=== PATIENT | male | born 1985 | race Caucasian/White ===

== ENCOUNTER 2020-10-13 13:53 | Outpatient (REF) | payer OTHER, SELFPAY ==
[2020-10-14 19:10] LABS: COVID-19 RT-PCR UVMMC Result Negative (Negative)
== END 2020-10-13 14:13 ==
LOC: NCHCN 13:53
PROVIDERS: PCP Internal Medicine; Visit Provider Family Medicine
DX: Z20.822 Contact with and (suspected) exposure to COVID-19 (principal)
CPT/HCPCS: U0003

== ENCOUNTER 2021-02-02 12:57 | Outpatient (REF) | payer OTHER, SELFPAY ==
[2021-02-03 11:28] LABS: COVID-19 RT-PCR UVMMC Result Negative (Negative)
== END 2021-02-02 12:58 | disposition home or self-care (01) ==
LOC: NCHCN 12:57
PROVIDERS: PCP Internal Medicine
DX: Z20.822 Contact with and (suspected) exposure to COVID-19 (principal)
CPT/HCPCS: U0003

== ENCOUNTER 2021-06-10 17:38 | Outpatient (REF) | payer SELFPAY ==
[2021-06-11 16:38] LABS: COVID-19 RT-PCR UVMMC Result Negative (Negative)
== END 2021-06-10 17:39 | disposition home or self-care (01) ==
LOC: NCHCN 17:38
PROVIDERS: PCP Internal Medicine; Referring Provider Family Medicine; Visit Provider Family Medicine
DX: Z20.822 Contact with and (suspected) exposure to COVID-19 (principal)
CPT/HCPCS: U0003

== ENCOUNTER 2022-03-17 23:05 | Emergency (ER) | payer SELFPAY ==
--- OUTSIDE RECORDS SUMMARY | 2022-03-17 23:17 | XMS_ITS | Encounter Summary ---
:1985 [place] [address] Care Team Providers Name Role Phone Mary Graham MD Primary Care Provider Reason for Referral Diagnostic Test (Routine) - Closed Specialty Diagnoses / Procedures Referred By Contact Refer red To Contact Sleep Center Diagnoses JOANNA (obstructive sleep apnea) Joanne Orlando APRN [facility] Sleep Medicine Procedures Sleep Study with PAP Titration [facility] [address] [place] [address] [place] [address] Referral ID Status Reason Start Date Expiration Date Visits V isits Requested Authorized [id number] Closed Specialty 06/02/2020 06/02/2021 1 1 Service Requested Encounter Details Date Type Department Care Team Description 05/14/2020 Orders Only Sleep Center at Joanne Orlando APRN [facility] sleep apnea) [address] [place], [place] SLE[place]ORD[place] [address] CENTER [phone] [place], [place] [address] (Wo rk) Social History Tobacco Use Types Packs/Day Years Used Date Never Assessed Sex Assigned at Date Recorded Not on file documented as of this encounter Progress Notes Joanne Orlando APRN - 05/14/2020 10:16 AM EDT CPAP titration with TCO2 and O2 protocol sleep study ordered today. JOANNE ORLANDO APRN documented in this encounter Plan of Treatment Scheduled Orders Name Type Priority Associated Diagnoses Order S chedule Sleep Study with PAP Sleep Center Routine JOANNA (obstructive sle ep Expected: Titration apnea) 05/14/2020, Exp ires: 05/13/2021 documented as of this encounter Visit Diagnoses Diagnosis JOANNA (obstructive sleep apnea) Obstructive sleep apnea (adult) (pediatr ic) documented in this encounter Care Teams Rotary Lithographic Press Operator Relationship Specialty Start Date End Date Mary Graham MD PCP - General Family Medicine 03/13/20 [address] [place] [address] documented as of this encounter
--- OUTSIDE RECORDS SUMMARY | 2022-03-17 23:17 | XMS_ITS | Encounter Summary ---
:1985 [place] [address] Care Team Providers Name Role Phone Mary Graham MD Primary Care Provider Encounter Details Date Type Department Care Team Description 06/26/2020 Orders Only Sleep Center at Joanne Orlando APRN JOANNA ([facility] sleep apnea) [address] [place] [address] CENTER [phone] [place], [place] [address] (Wo rk) Social History Tobacco Use Types Packs/Day Years Used Date Never Assessed Sex Assigned at Date Recorded Not on file documented as of this encounter Progress Notes Joanne Orlando APRN - 06/26/2020 12:15 PM EDT Order placed to [facility] for machine, mask, and all PAP supplies. Routing to staff to contact pt re scheduling CPAP compliance visit with me in > 8 weeks from today. JOANNE ORLANDO APRN documented in this encounter Plan of Treatment Not on filedocumented as of this encounter Visit Diagnoses Diagnosis JOANNA (obstructive sleep apnea) Obstructive sleep apnea (adult) (pediatr ic) documented in this encounter Care Teams Fundraising Officer Relationship Specialty Start Date End Date Mary Graham MD PCP - General Family Medicine 03/13/20 [address] [place], [place] [id number] documented as of this encounter
--- OUTSIDE RECORDS SUMMARY | 2022-03-17 23:17 | XMS_ITS | Encounter Summary ---
:1985 Author Organization [place] [address] Care Team Providers Name Role Phone Mary Graham MD Primary Care Provider Reason for Visit Diagnostic Test (Routine) - Closed Specialty Diagnoses / Procedures Referred By Contact Refer red To Contact Sleep Center Diagnoses JOANNA (obstructive sleep apnea) Joanne Orlando APRN [facility] Sleep Medicine Procedures Sleep Study with PAP Titration [facility] [address] [place] [address] [place] [address] Referral ID Status Reason Start Date Expiration Date Visits V isits Requested Authorized [id number] Closed Specialty 06/02/2020 06/02/2021 1 1 Service Requested Encounter Details Date Type Department Care Team Description 06/12/2020 [facility] sleep apnea) [place] [address] SLEEP DISORDERS [phone] [place], [place] [address] Social History Tobacco Use Types Packs/Day Years Used Date Never Assessed Sex Assigned at Date Recorded Not on file documented as of this encounter Last Filed Vital Signs Vital Sign Reading Time Taken Comments Blood Pressure 147/92 06/12/2020 11:52 PM AUTOM[employer] CU FF EDT Pulse 96 06/12/2020 11:52 PM EDT Temperature 36.6 ??C (97.9 ??F) 06/12/2020 7:24 PM EDT Respiratory Rate - - Oxygen Saturation 97% 06/12/2020 11:52 PM EDT Inhaled Oxygen Concentration - - Weight 153.2 kg (337 lb 12.8 06/12/2020 11:52 PM oz) EDT Height 193 cm (6' 4) 06/12/2020 11:52 PM EDT Body Mass Index 41.12 06/12/2020 11:52 PM EDT documented in this encounter Progress Notes Rafael Begum MD - 06/12/2020 7:30 PM EDT Images from the original note were not included. REPORT OF POSITIVE PRESSURE TITRATION IDENTIFYING INFORMATION Elieser Gardner : 1985 REFERRING PHYSICIAN:CIRILO Aponte PRIMARY CARE PHYSICIAN: Mary Graham MD History Of Present Illness: Elieser Gardner is a 34 y.o. male who presents for a polysomnogram. Polysomnography: The patient's sleep was evaluated for one night at the [facility]. Sleep was monitored in accordance with recommended AASM guidelines. The recording also included oral/nasal airflow, chest and abdominal respiratory effort, nasal pressure, single channel EKG, intercostal EMG, bilateral tibialis EMG, and oxygen saturation (by pulse oximeter). Type of Positive Pressure Utilized: CPAP Comment: - Sleep/EEG: The patient had a 9.5 Hz posterior dominant rhythm when awake with eyes closed. NREM and REM sleep were noted. REM percentage was 35% which is elevated and suggestive of a REM rebound. REMlatency, however, was not reduced. - Respiratory: CPAP was titrated from a pressure of 6 cm to 19 cm. The patient reported some difficulty exhaling against CPAP which was relieved by adding Cflex. Obstructions was noted side NREM at 6 and 8 cm in light sleep. Audible snoring was noted side N3 at 10 and 11 cm. Supine hypopneas were noted at 12,13 and 14 cm in NREM sleep. Audible snoring was noted supine N3 at 15 and 16 cm. Pressures of 16 and 18 cm were demonstrated generally effective in N2 and REM supine.Some central apneas were noted in REM and in light sleep at these pressures. The central apnea indexoverall for the night as a whole was only 4. A pressure of 19 cm pressure was also demonstrated efficacious in REM sleep supine. Interfaces: Dreamwear FFM large frame with medium mask used for the entire study. At 16 cm leak values were 45-63 lpm. At 18 cm leak values were 52-69 lpm. There was no evidence for sustained hypoxemia overnight. For the study as a whole the mean saturation was 97% with a minimum of 91%. - EKG: Normal sinus rhythm with no significant ectopy. - EMG: PLMI was zero. - Study Conditions: Head of the bed: flat with one pillow Supplemental oxygen: room air - Subjective: The post sleep study questionnaire indicated the following: ...how did you sleep last night: slighlty worse ..how well rested and alert do you feel right now: slightly worse Mask Demonstration: Patient expressed a preference for Dreamwear FFM over the Simplus medium FFM. Assessment: Mr. Elieser Gardner is a 34 y.o. male whose polysomnogram reveals a mostly effective CPAP pressure of 16 cm of water in NREM and REM supine. There was no sustained hypoxemia noted withCPAP overnight. A possible REM rebound was noted overnight suggesting possible prior REM sleep deprivation secondary to sleep apnea. Results and recommendations relayed via my . Recommendations: 1) CPAP set at a pressure of 16 cm with a Dreamwear full face mask size large frame and medium mask.To be ordered by PATO Orlando. 2) Blood pressure monitoring and then follow up with Mary Graham MD given the elevated blood pressure reading of 147/92 prior to the sleep study. 3) Follow up with PATO Orlando approximately 6 weeks after starting CPAP to be arranged by PATO Orlando. [facility] REPORT of TITRATION Polysomnography Patient Name: Elieser aGrdner Study Date: 06/12/2020 Age & Sex: 34 y.o. Male Height: 6'4 Date of : 1985 Weight: 337.8 lbs BMI: 41.1 Referring Provider: Recording Technologist: MARK COE Scoring Technologist: SHERRY EDWARDS RRT, RPSGT Sleep Fellow: Sleep Specialist: Scoring Technologist Comments: ECG: Sinus Rhythm Ectopy: Epoch 632 Description of Study: Diagnostic polysomnography was performed utilizing frontal, central & occipital EEG, EOG, submentalis EMG, oronasal thermocouple, nasal pressure, ECG, thoracic and abdominal inductance plethysmography, right and left anterior tibialis EMG, snore sensor, and pulse oximetry according to AASM established guidelines. Study Details & Sleep Architecture Diagnostic Start Time (Lights Off): 20:51:54 Total Recording Time: 539.5 min Diagnostic End Time (Lights On): 05:51:24 Total Sleep Time (minutes): 465.5 Total Num. of Stage Shifts: 164 Total Sleep Time (hrs:min): 7:45.5 Total Num. of Awakenings: 22 Sleep Onset Latency: 13.0 min Total Num. of Trans. to N1: 45 Sleep Efficiency: 86.3% Total Num. of REM Periods: 6 Stage Results: Time (minutes) %TST Latency (minutes) WASO: 61.0 - - N1: 43.0 9.2 0.0 N2: 159.0 34.2 5.5 N3: 99.0 21.3 18.0 REM: 164.5 35.3 113.5 109.5 (minus wake) Arousal Counts: NREM REM Total Spontaneous: 31 (6.2/hr) 17 (6.2/hr) 48 (6.2/hr) Sum of All Arousals: 96 (19.1/hr) 19 (6.9/hr) 115 (14.8/hr) Spontaneous arousals include only EEG arousals not associated with a respiratory event or PLM. Body Position: Supine Non-Supine Non-REM: 157.0 min 144.0 min REM: 144.5 min 20.0 min Total Sleep: 301.5 min (64.8%) 164.0 min (35.2%) Respiratory Events Apneas Obstructive Mixed Central Total Apneas Total Count: 24 3 34 61 Mean Duration (sec): 12 22 13 14 Longest Duration (sec): 18.9 28.5 28.1 29 Index (REM/NREM): 0.0 / 4.8 0.0 / 0.6 1.5 / 6.0 1.5/ 11.4 Index (Sup./Non-Sup.): 0.4 / 8.0 0.4 / 0.4 3.4 / 6.2 4.2/ 14.6 Index (Total): 3.1 0.4 4.4 7.9 Hypopneas & RERAs Hypopnea* [facility] Hypopnea AASM Central Hypopneas Hypopneas All RERA Total Count: 7 54 0 54 0 Mean Duration (sec): 26.8 27.5 - 28 0 Longest Duration (sec): 56.3 61.2 0.0 61 0 Index (REM/NREM): 0.4/1.2 2.9/9.0 0.0/0.0 3.3/ 9.0 0.0 0.0 Index (Sup./Non-Sup.): 0.8 / 1.1 5.2/ 9.9 0/0 5.2/ 10.2 0.0 / 0.0 Index (Total): 0.9 6.8 0.0 7.0 0.0 *[facility]-defined hypopneas include only hypopneas with a >=4% oxygen desaturation. Includes hypopneas with an arousal or with a 3%-4% desaturation. Periodic Breathing Total Sleep Time Time (minutes) 0.0 Time (%Sleep Time) 0.0 AHI: Includes all apneas & all hypopneas associated with an arousal or a ? 3% desaturation. Supine Non-Sup. REM NREM Total Count: 47 68 13 102 115 Index (events/hr): 9.4 24.9 4.7 20.3 AHI = 14.8 CMS AHI: Includes all apneas & only hypopneas associated with a ? 4% desaturation. Supine Non-Sup. REM NREM Total Count: 25 43 5 63 68 Index (events/hr): 5.0 15.7 1.8 12.6 CMS = 8.8 Obstructive AHI: Includes obstructive & mixed apneas as well as all hypopneas. Excludes central apneas and RERAs. Supine Non-Sup. REM NREM Total Count: 30 51 9 72 81 Index (events/hr): 6.0 18.7 3.2 14.3 OAHI = 10.4 RDI: Includes all apneas, all hypopneas, all RERAs, and all ???Unsure??? events. Supine Non-Sup. REM NREM Total Count: 47 68 12.9 101.8 115 Index (events/hr): 9.4 24.9 4.7 20.3 RDI = 14.8 Oxygen Saturation Details (Overall) SpO2 Awake NREM REM All Sleep TIERA Report Sleep Mean: 98% 97% 98% 97% 3% TIERA 6.4 7.0 Minimum: - 91% 95% 91% 4% TIERA 1.3 1.5 SpO2 Awake (minutes) NREM (minutes) REM (minutes) All Sleep (minutes) ?90% 0.0 0.0 0.0 0.0 ?89% 0.0 0.0 0.0 0.0 ?88% 0.0 0.0 0.0 0.0 90-99% 48.1 284.1 135.0 419.1 80-89.9% 0.0 0.0 0.0 0.0 79-79.9% 0.0 0.0 0.0 0.0 60-69.9% 0.0 0.0 0.0 0.0 50-59.9% 0.0 0.0 0.0 0.0 ?50% 0.0 0.0 0.0 0.0 Cardiac Details Heart Rate (bpm) Total Study NREM REM All Sleep Minimum - 54 51 51 Maximum 107 89 95 95 Mean - 76 76 76 Limb Movement Details Periodic Limb Movements Total PLMs (and Index) PLMs w/ Arousals (and Index) Wake (after ???Lights Off???): 0 (0.0/hr) 0 (0.0/hr) NREM: 0 (0.0/hr) 0 (0.0/hr) REM: 0 (0.0/hr) 0 (0.0/hr) Total Sleep: 0 (0.0/hr) 0 (0.0/hr) Pressure Analysis Time (hh:mm:ss) IP/EP/O2 TST Supine Non-Sup. REM Non-REM REM Sup. 6/6/0 8/8/0 10/10/0 11/11/0 12/12/0 13/13/0 14/14/0 15/15/0 16/16/0 18/18/0 19/19/0 0:05:1.0 0:05:29.0 0:14:7.0 0:24:11.0 0:16:46.0 0:06:37.0 0:09:0.0 0:20:19.0 1:54:25.0 3:03:47.0 1:05:48.0 0:00:0.0 0:00:0.0 0:00:0.0 0:00:0.0 0:04:34.0 0:06:37.0 0:09:0.0 0:20:19.0 1:54:25.0 1:23:5.0 1:03:30.0 0:05:1.0 0:05:29.0 0:14:7.0 0:24:11.0 0:12:12.0 0:00:0.0 0:00:0.0 0:00:0.0 0:00:0.0 1:40:42.0 0:02:18.0 0:00:0.0 0:00:0.0 0:00:0.0 0:00:0.0 0:00:0.0 0:00:0.0 0:00:0.0 0:00:0.0 0:50:30.0 0:58:0.0 0:56:0.0 0:05:1.0 0:05:29.0 0:14:7.0 0:24:11.0 0:16:46.0 0:06:37.0 0:09:0.0 0:20:19.0 1:03:55.0 2:05:47.0 0:09:48.0 0:00:0.0 0:00:0.0 0:00:0.0 0:00:0.0 0:00:0.0 0:00:0.0 0:00:0.0 0:00:0.0 0:50:30.0 0:38:0.0 0:56:0.0 Respiratory Event Counts IP/EP/O2 Obstr. Ap. Mixed Ap. Central Ap. Hypopneas* RERAs 6/6/0 8/8/0 10/10/0 11/11/0 12/12/0 13/13/0 14/14/0 15/15/0 16/16/0 18/18/0 19/19/0 9 13 0 0 0 0 0 0 0 0 2 1 0 0 0 0 0 0 0 2 0 0 1 0 0 0 0 0 0 0 10 22 1 3 0 4 0 6 6 4 0 5 23 3 0 0 0 0 0 0 0 0 0 0 0 *Includes all types of hypopneas: those associated with arousals or ?3% desaturations. Respiratory Indices (events per hour) IP/EP/O2 OAI MEAGHAN NOAH HI* RDI 6/6/0 8/8/0 07/04/0 0 09/05/0 /0 14/0 1515/0 1616/0 18/18/0 1919/0 107.6 142.2 0.0 0.0 0.0 0.0 0.0 0.0 0.0 0.0 1.8 12.0 0.0 0.0 0.0 0.0 0.0 0.0 0.0 1.0 0.0 0.0 12.0 0.0 0.0 0.0 0.0 0.0 0.0 0.0 5.2 7.2 0.9 35.9 0.0 17.0 0.0 21.5 54.4 26.7 0.0 2.6 7.5 2.7 167.4 142.2 17.0 0.0 21.5 54.4 26.7 0.0 8.9 14.7 5.5 *Includes all types of hypopneas: those associated with arousals or ?3% desaturations. Respiratory Indices (events per hour) IP/EP/O2 AHI Supine Non-Sup. REM Non-REM 66/0 88/0 07/04/0 08/05/0 09/05/0 1313/0 1414/0 1515/0 1616/0 18/18/0 19/19/0 167.4 142.2 17.0 0.0 21.5 54.4 26.7 0.0 8.9 14.7 5.5 0.0 0.0 0.0 0.0 78.8 54.4 26.7 0.0 8.9 5.8 5.7 167.3 142.3 17.0 0.0 0.0 0 0 0 0 22.0 0.0 0.0 0.0 0.0 0.0 0.0 0.0 0.0 0.0 5.9 7.2 1.1 167.4 142.2 17.0 0.0 21.5 54.4 26.7 0.0 11.3 18.1 30.6 *Includes all types of hypopneas: those associated with arousals or ?3% desaturations. Oxygen Saturations IP/EP/O2 Minimum Mean 6/6/0 8/8/0 10/10/0 11/11/0 12/12/0 13/13/0 14/14/0 15/15/0 16/16/0 18/18/0 19/19/0 94 94 93 94 96 94 91 94 93 92 94 97 97 96 96 97 97 97 97 98 98 98 Graphs CPAP/Bi-Level PLMs Body Position documented in this encounter Plan of Treatment Not on filedocumented as of this encounter Visit Diagnoses Diagnosis JOANNA (obstructive sleep apnea) Obstructive sleep apnea (adult) (pediatr ic) documented in this encounter Care Teams Mechanical Maintenance Relationship Specialty Start Date End Date Mary Graham MD PCP - General Family Medicine 03/13/20 [address] [place] [address] documented as of this encounter
--- OUTSIDE RECORDS SUMMARY | 2022-03-17 23:17 | XMS_ITS | Encounter Summary ---
:1985 Demographics Home Phone Preferred Language Unknown Marital Status Unknown Sikhism Affiliation Unknown Race Unknown Ethnic Group Unknown Author Organization [facility] Address [address] [place] [address] Care Team Providers Name Role Phone Unavailable Primary Care Provider Unavailable Encounter Details Date Type Department Care Team Description 10/13/2020 Lab Requisition [facility] Outr Resulting Lab, Pathology & Laboratory Provider [facility] [address] [place] [address] Social History Tobacco Use Types Packs/Day Years Used Date Never Assessed Sex Assigned at Date Recorded Not on file documented as of this encounter Plan of Treatment Not on filedocumented as of this encounter Procedures Procedure Name Priority Date/Time Associated Diagnosis Comme nts COVID-19 TEST [facility] Today 10/13/2020 10:20 LAB PCR EST COVID-19 TESTING Routine 10/13/2020 10:20 Results for this EST procedure are i n the results section. documented in this encounter Results COVID-19 TEST [facility] LAB PCR (10/13/2020 10:20 EST) Specimen Swab - Entire nasopharynx (body structur e) Performing Organization Address City/State/ZIP Code Phon e Number [facility] [address] [place] [address] SERVICES COVID-19 TESTING (10/13/2020 10:20 EST) COVID-19 rt-PCR Negative Negative [facility] Result Comment: [facility] Negative results do not prec lude 2019-nCoV infection and should not be used as the sole basis for treatment or other patient management decisions. Negative results must be combined with clinical observa SERVICES tions, patient history, and epidemiological informatio n. This test was developed and its performance characteristics determined by [facility]. It has not been cleared or approved by the US Food and Drug Administration. FDA does not require this test to go through premarket FDA review. This t est is used for clinical purposes. It should not be regarded as investigational or for research. This laboratory is certified under the Clinical Laboratory Improvement Amendm ents (CLIA) as qualified to perform high complexity clinical laboratory testing. This test is based on the CD C COVID-19 Emergency Use Authorization (EUA) assay, with minor modification as defined by the FDA Performed on the [employer] 7 Flex RT-PCR System. Performing Lab [facility] Lab [facility] SERVICES Specimen Swab Performing Organization Address City/State/ZIP Code Phon e Number [facility] [address] [place] [address] SERVICES documented in this encounter Visit Diagnoses Not on filedocumented in this encounter
--- OUTSIDE RECORDS SUMMARY | 2022-03-17 23:17 | XMS_ITS | Encounter Summary ---
:1985 Author Organization [facility] [place] [address] Care Team Providers Name Role Phone Mary Graham MD Primary Care Provider Encounter Details Date Type Department Care Team Description 04/09/2020 Telephone Sleep Center at [facility] Joanne Orlando, TOWEL ROLLING MACHINE OPERATOR [address] [facility] [place] [address] SLEEP DISORD[facility]ENTER [phone] [place] [id number] (Wo rk) Social History Tobacco Use Types Packs/Day Years Used Date Never Assessed Sex Assigned at Date Recorded Not on file documented as of this encounter Plan of Treatment Not on filedocumented as of this encounter Visit Diagnoses Not on filedocumented in this encounter Care Teams Associate Professor Of Kinesiology Relationship Specialty Start Date End Date Mary Graham MD PCP - General Family Medicine 03/13/20 [address] [place], [place] [address] documented as of this encounter
--- OUTSIDE RECORDS SUMMARY | 2022-03-17 23:17 | XMS_ITS | Encounter Summary ---
:1985 Demographics Home Phone Preferred Language Unknown Marital Status Unknown Advent Affiliation Unknown Race Unknown Ethnic Group Unknown Author Organization [facility] Address [address] [place] [address] Care Team Providers Name Role Phone Unavailable Primary Care Provider Unavailable Encounter Details Date Type Department Care Team Description 06/10/2021 Lab Requisition [facility] Outr Resulting Lab, Pathology & Laboratory Provider [facility] [address] [place] [address] Social History Tobacco Use Types Packs/Day Years Used Date Never Assessed Sex Assigned at Date Recorded Not on file documented as of this encounter Plan of Treatment Not on filedocumented as of this encounter Procedures Procedure Name Priority Date/Time Associated Diagnosis Comme nts COVID-19 TEST [facility] Today 06/10/2021 11:15 LAB PCR EDT COVID-19 TESTING Routine 06/10/2021 11:15 Results for this EDT procedure are i n the results section. documented in this encounter Results COVID-19 TEST [facility] LAB PCR (06/10/2021 11:15 EDT) Specimen Swab - Entire nasopharynx (body structur e) Performing Organization Address City/State/ZIP Code Phon e Number [facility] [address] [place] [address] SERVICES COVID-19 TESTING (06/10/2021 11:15 EDT) COVID-19 rt-PCR Negative Negative [facility] Result Comment: [facility] This test has not been FDA c leared or approved. This test has been authorized by FDA under an EUA for use by authorized laboratories. This test has been authorized only for detection of nucleic acid fro SERVICES m 2019-nCoV, not for any oth er viruses or pathogens. This test is only authorized for the duration of the declaration that circumstances exist justifying the authorization of emergency use of in vitro d iagnostic tests for detectio n and/or diagnosis of 2019-nCoV under section 564(b)(1) of Act, 21 U.S.C ?? 360bbb-3(b) (1), unless the authorization is terminated or revoked sooner. Negative results do not prec lude 2019-nCoV infection and should not be used as the sole basis for treatment or other patient management decisions. Negative results must be combined with clinical observa tions, patient history, and epidemiological informatio n. Testing was performed using the chel SARS-CoV-2 assay ([employer] on the Chel 6800 System Performing Lab [address] [facility] Lab [facility] SERVICES Specimen Swab Performing Organization Address City/State/ZIP Code Phon e Number [facility] [address] [place] [address] SERVICES documented in this encounter Visit Diagnoses Not on filedocumented in this encounter
--- OUTSIDE RECORDS SUMMARY | 2022-03-17 23:17 | XMS_ITS | Encounter Summary ---
:1985 Author Organization [place] [address] Care Team Providers Name Role Phone Mary Graham MD Primary Care Provider Reason for Referral Consultation (Routine) - Closed Specialty Diagnoses / Procedures Referred By Contact Refer red To Contact Sleep Center Diagnoses Observed sleep apnea Loud snoring Excessive daytime sleepiness Non-restorative sleep Joanne Orlando APRN [facility] Procedures PRG SLEEP STD AIRFLOW HRT RATE AND SAT EFFORT UNATT [facility] [address] [place] [address] [place] [address] Referral ID Status Reason Start Date Expiration Date Visits V isits Requested Authorized [id number] Closed Test Only 04/09/2020 04/09/2021 1 1 Reason for Visit Consultation (Urgent) - Specialty Diagnoses / Procedures Referred By Contact Refer red To Contact Sleep Center Diagnoses Obstructive sleep apnea (adult) (pediatric) Michael Miller PA [facility] [address] [place] [address] [place] [address] Fax: Referral ID Status Reason Start Date Expiration Date Visits V isits Requested Authorized [id number] Consult, Test 02/25/2020 02/24/2021 6 6 [facility] PCP Updated and/or Approved Encounter Details Date Type Department Care Team Description 04/09/2020 Office Visit Sleep Center at Joanne Orlando, Excessive daytime sleepiness (Primary Dx); [address] [facility] Observed sleep apnea; [address] [facility] Loud snoring; [place], [place] Non-restorative sleep [phone] SLEEP DISORDERS [phone] [place], [place] [address] (Wo rk) Social History Tobacco Use Types Packs/Day Years Used Date Never Assessed Sex Assigned at Date Recorded Not on file documented as of this encounter Last Filed Vital Signs Vital Sign Reading Time Taken Comments Blood Pressure 134/92 04/09/2020 10:10 AM EDT Pulse 97 04/09/2020 10:10 AM EDT Temperature - - Respiratory Rate - - Oxygen Saturation 98% 04/09/2020 10:10 AM EDT Inhaled Oxygen Concentration - - Weight 149.2 kg (329 lb) 04/09/2020 10:10 AM EDT Height 193 cm (6' 4) 04/09/2020 10:10 AM EDT Body Mass Index 40.05 04/09/2020 10:10 AM EDT documented in this encounter Patient Instructions Patient InstructionsJoanne Orlando APRN - 04/09/2020 10:00 AM EDT Recommendations: --Home sleep apnea test, will call clinic to schedule --Printed handout given to patient on Sleep Apnea Facts & Figures, What to Expect for Sleep Study --Role of weight loss reviewed --Safe driving precautions reviewed with the patient documented in this encounter Progress Notes Joanne Orlando APRN - 04/09/2020 10:00 AM EDT Sleep Medicine Consultation Note CC/HPI: Elieser Gardner is a 34 y.o. male seen at the request of CIRILO Aponte, for advice regarding JOANNA. Has daytime somnolence. Doesn't have the energy to exercise. He tried another persons CPAP machine but couldn't tolerate pressures, but tried it in the past for about 10 mins for 2 nights. He couldn't exhale so HPI continues below. Sleep Pattern: Bed/Recliner/Wedge: bed, flat, with and dog at foot of bed # Pillows under head: 1 Bedtime: 9:30 Lights out: same time, no cell or tv in bedroom; Position: back or sides Latency (ANDRES): quick Awakenings (WASO): 1-3x, up to twice to void but rare Duration: quickly Wake time: workdays 4:30a, rises about 20mins later; nonworkdays 6:30a Sleep duration (TST): usually 7 hours Respiratory: Snoring: like a freShareSquare train, nightly and loud Observed Apneas: yes, mentioned by Mouth Breathing: unaware during day Dry Mouth: yes Nocturnal Gasping: rare Nasal Obstruction: no Daytime Symptoms: Patient-reported last 4 scores: [facility] 04/08/2020 [facility] 20 (High Risk) Insomnia Severity Index 11 (Subthreshold insomnia) Restorative Sleep Upon Awakening?: no Naps: no Involuntary Dozing: yes, 7 days a week Driving: yes, and yes for drowsiness which has worsened past few years Close calls related to sleepiness: many and last time was earlier this year; nodding off on longer commute in past but less frequent now with 15 mins commute Accidents related to sleepiness: no Other Associated Sleep Symptoms: Parasomnias: Sleep Walking: no RBD (Dream enactment): no Nightmares: No Sleep Paralysis: no Hallucinations: no Cataplexy: no Bruxism: no Motor: RLS: no PLMS: no Family History: Family history of sleep disorders: mother snored ROS: CON: weight change: gain of 40lbs in last couple ENT: Environmental allergies: no PUL: ORDAZ: yes with weight gain CV: chest pain: no Palpitations: heart races sometimes, feels out of proportion to what he's doing LE edema: notices ankles swollen, may with weight gain GI: GERD: only if crap food eaten : Nocturia: no MSK: Pain: no NEURO: sleep related headaches: no PSY: Depressed Mood/Anxiety: greater irritability lately Social History: Living situation: , 2 dogs, two kids 8yo and 10yo 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 Blood clot in vein 2014 in superficial vein Problem List: None Medications: No outpatient medications have been marked as taking for the 04/09/20 encounter (Office Visit) with Joanne Orlando APRN. PE: BP (!) 134/92 Pulse 97 Ht 193 cm (6' 4) Wt (!) 149.2 kg (329 lb) SpO2 98% BMI 40.05 kg/m?? General: 34 y.o.male, NAD Eyes: conjunctiva clear ENT: MP: 2/4, tonsils present 1-2+ Gums and teeth: good condition Tongue: unremarkable size Mandibular structure and position: retrognathia NECK: Submental fat present: yes Circumference: 19.5 inches LUNGS: respirations even and unlabored CV: RRR, no m/g/r NEURO: gait and station normal, no tremor PSYCH: Alert and appropriate: yes Oriented to person, place and time: AOx3 Affect: normal Judgement and insight: intact Assessment: Elieser Gardner is a 34 y.o. male with a history of loud and nightly snoring, observed sleep apnea, nocturnal gasping, non-restorative sleep despite adequate sleep, excessive daytime sleepiness with daily dozing, weight gain of 40lbs in past few years, and increased drowsiness while driving. Physical exam is signficant for BMI 40, elevated blood pressure reading today (but rushing today, was late to clinic), retrognathia, submental adipose tissues, neck girth of 19.5 inches. No significant medical history except superficial vein blood clot in past. The pathophysiology of, the reasons to treat and treatment options for suspected obstructive sleep apnea were reviewed. Patient education on how caffeine, smoking, and alcohol can affect sleep. Processgoing forward and compliance discussed if diagnosed with JOANNA and CPAP therapy recommended. Recommend HSAT/study. Discussed possibility of non-diagnostic HSAT. He has a CPAP machine given to him and tried but couldn't tolerate pressure and settings were limited. Doesn't know make or model but understands he may be prescribed another if dx'd with JOANNA, and withappropriate settings/functionality. Plan/all recommendations below. The patient confirms that study results can be sent to [facility] online. Recommendations: --Home sleep apnea test, will call clinic to schedule --Printed handout given to patient on Sleep Apnea Facts & Figures, What to Expect for Sleep Study --Role of weight loss reviewed --Safe driving precautions reviewed with the patient The patient indicates understanding of these issues and agrees with the plan. Joanne Orlando APRN Cc: Mary Graham MD, CIRILO Aponte documented in this encounter Plan of Treatment Scheduled Referrals Name Type Priority Associated Diagnoses Order S chedule Referral to Sleep Outpatient Referral Routine Observed s leep apnea Ordered: Disorders Center Loud snoring 04/09/2020 Excessive daytime sleepiness Non-restorative sleep documented as of this encounter Visit Diagnoses Diagnosis Excessive daytime sleepiness - Primary Observed sleep apnea Unspecified sleep apnea Loud snoring Non-restorative sleep Other sleep disturbances documented in this encounter Care Teams Artificial Insemination Technician Relationship Specialty Start Date End Date Mary Graham MD PCP - General Family Medicine 03/13/20 [address] [place] [address] documented as of this encounter
--- OUTSIDE RECORDS SUMMARY | 2022-03-17 23:17 | XMS_ITS | Clinical Summary ---
:1985 Demographics Home Phone Preferred Language Unknown Marital Status Unknown Zoroastrian Affiliation Unknown Race Unknown Ethnic Group Unknown Author Organization [facility] Address [address] [place] [id number] Care Team Providers Name Role Phone Unavailable Primary Care Provider Unavailable Social History Tobacco Use Types Packs/Day Years Used Date Never Assessed Sex Assigned at Date Recorded Not on file Plan of Treatment Not on file
--- OUTSIDE RECORDS SUMMARY | 2022-03-17 23:17 | XMS_ITS | Encounter Summary ---
:1985 Author Organization [facility] [place] [address] Care Team Providers Name Role Phone Mary Graham MD Primary Care Provider Reason for Visit Consultation (Routine) - Closed Specialty Diagnoses / Procedures Referred By Contact Refer red To Contact Sleep Center Diagnoses Observed sleep apnea Loud snoring Excessive daytime sleepiness Non-restorative sleep Joanne Orlando APRN [facility] Sleep Medicine Procedures PRG SLEEP STD AIRFLOW HRT RATE AND SAT EFFORT UNATT [facility] [address] [place] [address] [place] [address] Referral ID Status Reason Start Date Expiration Date Visits V isits Requested Authorized [id number] Closed Test Only 04/09/2020 04/09/2021 1 1 Encounter Details Date Type Department Care Team Description 05/01/2020 Procedure visit Sleep Center at [facility] Godwin, JOANNA ( [facility] sleep apnea) [address] [place] [address] SLEEP DISORDERS [phone] [place], [place] [address] Social History Tobacco Use Types Packs/Day Years Used Date Never Assessed Sex Assigned at Date Recorded Not on file documented as of this encounter Progress Notes Bernardino Godwin MD - 05/01/2020 10:00 AM EDT Images from the original note were not included. REFERRING PHYSICIAN: Joanne Orlando APRN PRIMARY CARE PHYSICIAN: Mary Graham MD History Of Present Illness: Elieser Gardner is a 34 y.o. male with a hx of loud and nightly snoring, observed sleep apnea, nocturnal gasping, non- restorative sleep despite adequate sleep duration,excessive daytime sleepiness with daily dozing, weight gain of 40lbs in past few years, increased drowsiness while driving, BMI 40, retrognathia, submental adipose tissues, neck girth of 19.5 inches who presents for an HST. Limited Polysomnography: The recording includes chest/abdominal respiratory effort, nasal pressure air flow, snoring and oxygen saturation (by pulse oximeter). Comment: - Respiratory: CHRISTIAN 4% of 61.2 was noted with a minimum saturation of 66%. Mean saturation of 86%. There was evidence of borderline baseline hypoxemia during the HST, and there were significant cyclicaloxyhemoglobin desaturations associated with obstructive events. The majority of events were obstructive apneas. There was 121.8 minutes spent with a saturation less than or equal to 88%. - Cardiac: Heart rate ranged from 62 to 111 bpm with an average heart rate of 83 bpm. - Other: Total recording time of 441 minutes. Assessment: Elieser Gardner is a 34 y.o. male whose home sleep test was diagnostic for severe obstructive sleep apnea, as evidenced by a CHRISTIAN of 61.2. There was evidence of borderline baseline hypoxemia during the HST, and there were significant cyclical oxyhemoglobin desaturations associated withobstructive events. There was evidence of increased time spent below an O2 saturation of 88%. Due tothe the significant hypoxemia noted during the HST, an in-lab CPAP titration is recommended. Resultsand recommendations are relayed via [facility]. Recommendations: 1. Plan for CPAP titration with TCO2 and O2 protocol to be ordered by Joanne Orlando APRN. [facility] HOME SLEEP APNEA TEST REPORT Patient Name: Elieser Gardner Study Date: 05/01/2020 Age & Sex: 34 y.o. Male Height: 6'4 Date of : 1985 Weight: 329 BMI: 40.0 Referring Prov.: Scoring Tech: YAMILETH VALERIO [facility] Sleep Fellow: Sleep Specialist: General Test Details Type III home sleep apnea testing was performed utilizing nasal pressure, single thoracoabdominal movement, heart rate, and oxygen saturation according to established AASM guidelines. Recording Start Time: ::25 Monitoring Start Time: ::25 Recording End Time: :25 Monitoring End Time: :47:25 Total Recording Time (TRT): 441.0 minutes Monitoring Time (MT): 441.0 minutes Respiratory Details Respiratory Event Total Count Index (events/hr) Obstructive apnea 309 42.0 Mixed apnea 3 0.4 Central apnea 0 0.0 Sum of all apnea types 312 42.4 Hypopneas without associated desaturation 14 1.9 Hypopneas with desaturation ?4% (CMS) 138 18.8 4% Respiratory Event Index (4%CHRISTIAN): 61.2 *Includes the sum of all apneas and hypopneas (assoc. with desaturation of ?4%) per hour of monitoring. 4% AHI (CMS): 61.2 *Includes the sum of all apneas and hypopneas (assoc. with desaturation of ?4%) per hour of monitoring. Eleazar-Kendrick Breathin.0% of total monitoring time Minimum SpO2: 66% Average SpO2 (during TRT): 86% SpO2 ? X%: Total Time ?90% 206.6 min ?89% 157.1 min ?88% 121.8 min SpO2 Ranges: Total Time 90%-99% 282.1 min 80%-90% 119.3 min 70%-80% 35.6 min 60%-70% 2.2 min 0%-60% 0.0 min Cardiac Details Minimum Heart Rate 62 bpm Maximum Heart Rate 111 bpm Average Heart Rate 83 bpm Graphs Time Scale Respiratory Event Graph SpO2 Trend Rafael Truong MD - 05/01/2020 10:00 AM EDT I reviewed the polysomnography in its entirety. I have reviewed Dr. Godwin's note and agree with thefindings and recommendations. HST consistent with severe JOANNA. Period with saturations 88-90% (ep 264). RAFAEL TRUONG MD documented in this encounter Plan of Treatment Scheduled Referrals Name Type Priority Associated Diagnoses Order S chedule Referral to Sleep Outpatient Referral Routine Observed s leep apnea Ordered: Disorders Center Loud snoring 04/09/2020 Excessive daytime sleepiness Non-restorative sleep documented as of this encounter Visit Diagnoses Diagnosis JOANNA (obstructive sleep apnea) Obstructive sleep apnea (adult) (pediatr ic) documented in this encounter Care Teams Work Order Sorting Clerk Relationship Specialty Start Date End Date Mary Graham MD PCP - General Family Medicine 03/13/20 [address] [place] [address] documented as of this encounter
--- OUTSIDE RECORDS SUMMARY | 2022-03-17 23:17 | XMS_ITS | Clinical Summary ---
:1985 Author Organization [facility] Address [place] [id number] Care Team Providers Name Role Phone Mary Graham MD Primary Care Provider Allergies No known active allergies Medications No known medications Active Problems Problem Noted Date JOANNA (obstructive sleep apnea) 06/25/2020 Social History Tobacco Use Types Packs/Day Years Used Date Never Assessed Sex Assigned at Date Recorded Not on file Last Filed Vital Signs Vital Sign Reading [...] Mass Index 41.12 06/12/2020 11:52 PM EDT Plan of Treatment Health Maintenance Due Date Last Done Comments Covid-19 Vaccine (#1) 1989 HIV screen 2002 Hepatitis C Screening 2002 Lipid Screening 2002 Tdap adult 2003 Tetanus vaccine 2003 Influenza (Flu) vaccine (1 of - Influenza standard 05/26/2021 series) Insurance Payer Benefit Plan / Subscriber ID Effective Dates Phone Addre ss Type Group [employer] [place] [id number] 2020-Present [phone] [address] [place] [address] Advance Directives Documents on File Type Date Recorded 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
--- OUTSIDE RECORDS SUMMARY | 2022-03-17 23:17 | XMS_ITS | Encounter Summary ---
:1985 Demographics Home Phone Preferred Language Unknown Marital Status Unknown Anabaptist Affiliation Unknown Race Unknown Ethnic Group Unknown Author Organization [facility] Address [address] [place] [address] Care Team Providers Name Role Phone Unavailable Primary Care Provider Unavailable Encounter Details Date Type Department Care Team Description 02/02/2021 Lab Requisition [facility] General Outr Resulting Lab, Pathology & Laboratory Provider [facility] [address], [place] [address] Social History Tobacco Use Types Packs/Day Years Used Date Never Assessed Sex Assigned at Date Recorded Not on file documented as of this encounter Plan of Treatment Not on filedocumented as of this encounter Procedures Procedure Name Priority Date/Time Associated Diagnosis Comme nts [facility] [facility] 02/02/2021 10:05 LAB PCR EDT COVID-19 TESTING Routine 02/02/2021 10:05 Results for this EDT procedure are i n the results section. documented in this encounter Results COVID-19 TEST [facility] PCR (02/02/2021 10:05 EDT) Specimen Swab - Entire nasopharynx (body structur e) Performing Organization Address City/State/ZIP Code Phon e Number [facility] [address] [place] [address] SERVICES COVID-19 TESTING (02/02/2021 10:05 EDT) COVID-19 rt-PCR Negative Negative [facility] Result Comment: [facility] This test [...] was performed using the chel SARS-CoV-2 assay ([employer] on the Chel 6800 System Performing Lab [address] [facility] Lab [facility] SERVICES Specimen Swab Performing Organization Address City/State/ZIP Code Phon e Number [facility] [address] [place] [address] SERVICES documented in this encounter Visit Diagnoses Not on filedocumented in this encounter
[2022-03-17 23:28] VITALS: BP 134/90; PULSE 68; RESP 16; TEMP 37.1; O2SAT 99
--- NOTE | 2022-03-17 23:30 | DI.CT_ITS ---
Exam(s) CT ABDOMEN PELVIS WO EXAM: CT ABDOMEN PELVIS WO CLINICAL HISTORY: upper abdomen pain. TECHNIQUE: Imaging Protocol: Axial computed tomography images with coronal and sagittal reformatted images were created and reviewed. COMPARISON: No exams were available for comparison FINDINGS: ABDOMEN: Lung Bases: Normal where visualized. Liver: Normal density. No measurable mass. Gallbladder and biliary tract: No radiodense calculus or biliary ductal dilation. Pancreas: Normal density, no abnormal calcifications or inflammatory process. Spleen: Normal. Kidneys: Normal size, contour and axis.No radiodense stones or obstructive uropathy. No masses seen. Adrenal glands: No mass is seen. Lymph nodes: Within normal limits. Abdominal Aorta: Abdominal portion non-dilated. PELVIS: Bladder:Symmetric distention, no gross wall thickening. Bowel: No obstruction or bowel wall thickening. Appendix is unremarkable. Peritoneal cavity: No ascites, collection or mesenteric inflammatory response. No free air. Reproductive organs: Within normal limits. Bones: Within normal limits. Soft Tissues: Within normal limits. IMPRESSION: Unremarkable CT scan of the abdomen and pelvis. RADIATION DOSE DELIVERED: 1,400.23mGy.cm Total DLP DATA REPOSITORY: All CT scans at this facility are submitted to the National Radiology Data Registry (NRDR) Dose Index Registry (DIR) with the [employer] (ACR). RADIATION OPTIMIZATION: All CT scans at this facility use at least one of these dose optimization te chniques: automated exposure control; mA and/or kV adjustment per patient size (includes targeted exa ms where dose is matched to clinical indication); or iterative reconstruction.
--- NOTE | 2022-03-17 23:33 | W.ED.GENAD ---
Discharge Plan Disposition Patient Disposition: HOME Condition: Stable Discharge Details Clinical Impression: Abdominal pain, Gastritis Primary Care Provider: Macho Zimmer ED Provider: Santos Lyle Home Meds and New Rx's Prescriptions: New omeprazole 20 mg capsule,delayed release(DR/EC) 20 mg PO DAILY Qty: 30 0RF Discharge Instructions Additional Instructions: you should be contacted with an appointment with general surgery you can take tums or mylanta as needed, follow dosing instructions on packaging if you feel more ill, have severe worsening pain or persistent vomiting return to the emergency department Medical Decision Making 36 yo male with no chronic medical problems and denies prior surgeries comes in with cc of abdominal pain. HE states he has had upper abdomen pain since this morning and has not had pain like this before. Denies pain with eating, n/v, fevers, chills, cp, dyspnea. HE states he drinks approximately a 12 pack a week, denies drug use. He is stable on arrival speaking in full sentences and rates pain at 4/10. He localizes it to the epigastric and ruq. He has no lower abdominal tenderness but is tender in the epigastric and ruq no guarding or rebound. Could be gastritis but also concern for gallbladder pathology and pancreatitis, will obtain labs and ct abdomen pelvis without contrast due to national iv contrast shortage. pt feels better and states the mylanta helped almost immediately so feel this could be gerd vs gastritis vs ulcer, labs unremarkable. No tenderness on exam now, still pending ct read. If ct read shows no acute findings will likely have him f/u with surgery to discuss possible endoscopy pt stable, states pain better, ct read negative. HE is stable for d/c and will place on f/u list to see general surgery for possible endoscopy, return precautions given Differential Diagnosis Differential Diagnosis: gastritis, pancreatitis biliary colic, cholecystitis Imaging Data Radiologic Study: Attestation: I personally reviewed and interpreted this imaging study as follows: Imaging: CT Scan Radiologist's impression: no acute findings Lab Data Lab results reviewed: Yes I reviewed the patient's lab results. HPI General Mode of arrival: ambulatory. Date/Time Provider Initiated Documentation: 03/17/22 23:06. Limitations to Documentation: no limitations. Information obtained by: patient. History of Present Illness 36 year old M presents to the emergency department with the chief complaint of abdominal pain, described as moderate, with intensity rated at 4. Patient reports no radiation. Patient started experiencing this day(s) (1) and it has been constant. No relieving factors improve symptom(s), Movement worsens symptoms . Patient notes no other symptoms.. Patient did receive the following treatments prior to arrival, none Related Data Home Medications Medication Instructions Recorded Confirmed omeprazole 20 mg capsule,delayed 20 mg PO DAILY #30 caps 03/18/22 release Previous Rx's Medication Instructions Recorded omeprazole 20 mg capsule,delayed 20 mg PO DAILY #30 caps 03/18/22 release Allergies Allergy/AdvReac Type Severity Reaction Status Date / Time No Known Allergies Allergy Verified 03/17/22 23:32 General Stated Complaint: Abd Prob DANDRE: 3 Review of Systems All systems reviewed & are unremarkable except as noted in HPI and below Constitutional Constitutional: Denies chills, Denies fever(s) and Denies weakness Eyes Eyes: Denies loss of vision ENT Ears, Nose, Mouth, and Throat: Denies change in voice Cardiovascular Cardiovascular: Denies chest pain and Denies dyspnea Respiratory Respiratory: Denies cough and Denies dyspnea Gastrointestinal Gastrointestinal: Denies nausea and Denies vomiting Genitourinary Genitourinary: Denies dysuria Integumentary/Breasts Skin/Breast: Denies rash Neurologic Neurologic: Denies loss of vision and Denies weakness PFSH All Active Problems (Updated 03/18/22 @ 00:37 by Santos Lyle MD) Abdominal pain (Acute) Gastritis (Acute) Plantar fasciitis, right (Acute) Social History (Updated 05/27/20 @ 13:21 by Lorenza Marie RN, RN) Smoking/Tobacco Use Status: Former Tobacco Use Quit Date: 09/25/14 Smoking risk assessment performed?: Yes Alcohol Intake: current Alcohol Intake frequency: a few times a week Alcohol type: beer Drug use: Rarely Substance use type: marijuana Current gender identity: male Do you feel safe at home: Yes Do you feel safe in your relationship?: Yes Exam Const General: no acute distress Orientation: alert [facility] Head: normal to inspection Ears: external ears normal General nose exam: external nose normal Mouth: moist mucous membranes Eyes General: appearance normal, both eyes and all related structures Neck Neck: normal visual inspection Resp Effort & Inspection: normal respiratory effort and able to speak in complete sentences Cardio Rate: regular rate GI Palpation: tender Skin General skin exam: no rashes or lesions noted Neuro General: patient alert and patient oriented x3 Extrem General: normal to inspection Psych Mental Status: mental status grossly normal Course Vital Signs Vital signs: Vital Signs Temperature 37.1 C 03/17/22 23:28 Pulse 68 03/17/22 23:28 Respiratory Rate 16 03/17/22 23:28 Blood Pressure 134/90 03/17/22 23:28 Pulse Oximetry 99 03/17/22 23:28 Temperature 37.1 C 03/17/22 23:28 Temperature Source Temporal Artery Scan 03/17/22 23:28 Pulse 68 03/17/22 23:28 Respiratory Rate 16 03/17/22 23:28 Respiratory Effort Non-Labored 03/17/22 23:30 Blood Pressure 134/90 03/17/22 23:28 Blood Pressure Position Supine 03/17/22 23:28 Pulse Oximetry 99 03/17/22 23:28 Oxygen Delivery Method Room Air 03/17/22 23:28 Oxygen Flow Rate 0 03/17/22 23:28 Pain Level 3 03/17/22 23:28
[2022-03-17 23:46] LABS: Source Nasal/Nares
[2022-03-17 23:53] LABS: Abs Immature Grans 0.06 10^3/uL (0.0-0.06); Absolute Basophil Count 0.04 10^3/uL (0.0-0.2); Absolute Eosinophil Count 0.06 10^3/uL (0.0-0.7); Absolute Lymphocyte Count 1.45 10^3/uL (1.2-3.4); Absolute Neutrophil Count 7.36 10^3/uL (1.2-6.7); Basophils % 0.4; Eosinophils % 0.6; Immature Grans % 0.6; Lymphocytes % 14.8; MCH 28.6 pg (27.0-33.0); MCHC 33.3 % (32.0-36.0); MCV 86 fL (80-95); MPV 9.5 fL (8.0-11.0); Monocytes % 8.2; Neutrophils % 75.4; Platelet Count 311 10^3/uL (130-400); RDW 13.3 % (11.8-14.1); RDW-SD 41.5 fL; WBC 9.77 10^3/uL (4.4-10.8)
[2022-03-18 00:02] LABS: ALT 41 U/L (16-63); AST 19 U/L (15-37); Albumin 3.6 g/dL (3.4-5.0); Alkaline Phosphatase 87 U/L (46-116); Anion Gap 8.5 mmol/L (3-11); BUN 12 mg/dL (7-18); Bilirubin, Direct 0.1 mg/dL (0.0-0.2); Bilirubin, Total 0.2 mg/dL (0.2-1.0); CO2 25.5 mmol/L (21.0-32.0); CREATININE 0.9 mg/dL (0.70-1.30); Calcium 8.3 mg/dL (8.5-10.1); Chloride 100 mmol/L (98-107); Glucose 136 mg/dL (74-106); Lipase 45 U/L (73-393); Magnesium 1.9 mg/dL (1.8-2.4); Potassium 3.7 mmol/L (3.5-5.1); Sodium 134 mmol/L (136-145); Total Protein 7.7 g/dL (6.4-8.2)
[2022-03-18 00:05] LABS: ETHANOL BLOOD < 3.0 mg/dL (<10)
[2022-03-18 00:43] LABS: COVID-19 PCR Negative (Negative)
--- NOTE | 2022-03-18 02:35 | DI.VRAD_ITS ---
PROCEDURE INFORMATION: Exam: CT Abdomen And Pelvis Without Contrast Exam date and time: 03/18/2022 12:08 AM Age: 36 years old Clinical indication: Abdominal pain; Epigastric; Additional info: Epigastric pain TECHNIQUE: Imaging protocol: Computed tomography of the abdomen and pelvis without contrast. Radiation optimization: All CT scans at this facility use at least one of these dose optimization techniques: automated exposure control; mA and/or kV adjustment per patient size (includes targeted exams where dose is matched to clinical indication); or iterative reconstruction. COMPARISON: No relevant prior studies available. FINDINGS: Liver: Normal. No mass. Gallbladder and bile ducts: Normal. No calcified stones. No ductal dilation. Pancreas: Normal. No ductal dilation. Spleen: Normal. No splenomegaly. Adrenal glands: Normal. No mass. Kidneys and ureters: Normal. No hydronephrosis. Stomach and bowel: Unremarkable. No obstruction. No mucosal thickening. Appendix: Normal appendix. Intraperitoneal space: Unremarkable. No free air. No significant fluid collection. Vasculature: Unremarkable. No abdominal aortic aneurysm. Lymph nodes: Unremarkable. No enlarged lymph nodes. Urinary bladder: Unremarkable as visualized. Reproductive: Unremarkable as visualized. Bones/joints: Unremarkable. No acute fracture. Soft tissues: Tiny umbilical hernia containing fat. IMPRESSION: No acute findings. Dictated and Authenticated by: Imer Christian MD. Ordering:ALYCIA Graham MD
--- NOTE | 2022-03-18 02:47 | NUR.NOTE ---
referral faxex to surgical assoc. for abd pain f/u, ?endoscopy within a week.Nursing Note:
== END 2022-03-18 02:52 | disposition home or self-care (01) ==
PROVIDERS: Emergency Provider Emergency Medicine; PCP Internal Medicine
DX: R10.13 Epigastric pain (principal); K29.00 Acute gastritis without bleeding
CPT/HCPCS: 80053; 83690; 87635; 99284; 74176; 80320; 82248; 83735; 85025

== ENCOUNTER 2024-07-31 03:26 | Outpatient (CLI) | payer SELFPAY ==
[2024-07-31 08:40] LABS: Abs Immature Grans 0.04 10^3/uL (0.0-0.06); Absolute Basophil Count 0.05 10^3/uL (0.0-0.2); Absolute Eosinophil Count 0.28 10^3/uL (0.0-0.7); Absolute Lymphocyte Count 2.64 10^3/uL (1.2-3.4); Absolute Monocyte Count 0.74 10^3/uL (0.1-0.8); Absolute Neutrophil Count 4.27 10^3/uL (1.2-6.7); Basophils % 0.6 %; Eosinophils % 3.5 %; HCT 43.1 % (40.0-50.0); HGB 14.4 g/dL (13.5-17.5); Immature Grans % 0.5 %; Lymphocytes % 32.9 %; MCH 28.9 pg (27.0-33.0); MCHC 33.4 % (32.0-36.0); MCV 87 fL (80-95); MPV 9.2 fL (8.0-11.0); Monocytes % 9.2 %; Neutrophils % 53.3 %; Platelet Count 347 10^3/uL (130-400); RBC 4.98 10^6/uL (4.36-5.78); RDW 13.4 % (11.8-14.1); RDW-SD 42.2 fL; WBC 8.02 10^3/uL (4.4-10.8)
[2024-07-31 10:03] LABS: ALT 50 U/L (16-63); AST 23 U/L (15-37); Albumin 3.9 g/dL (3.4-5.0); Alkaline Phosphatase 91 U/L (46-116); Anion Gap 9.7 mmol/L (3-11); BUN 13 mg/dL (7-18); Bilirubin, Total 0.57 mg/dL (0.2-1.0); CO2 27.3 mmol/L (21.0-32.0); Calcium 9.2 mg/dL (8.5-10.1); Calculated LDL 87 mg/dL (<100); Chloride 105 mmol/L (98-107); Cholesterol 167 mg/dL (<200); Estimated GFR 98.18 (mL/min/1.73m2); Glucose 90 mg/dL (74-106); HDL Cholesterol 68 mg/dL (40-60); Potassium 3.9 mmol/L (3.5-5.1); Sodium 142 mmol/L (136-145); TSH (W/Ref FT4) 2.18 uIU/mL (0.36-3.74); Total Protein 8.1 g/dL (6.4-8.2); Triglyceride 63 mg/dL (<150)
== END 2024-07-31 03:27 | disposition home or self-care (01) ==
PROVIDERS: PCP Internal Medicine; Visit Provider Family Medicine
DX: Z00.00 Encounter for general adult medical examination without abnormal findings (principal)
CPT/HCPCS: 36415; 80053; 80061; 84443; 85025